=== PATIENT | male | born 1970 | race Caucasian/White ===

== ENCOUNTER 2017-02-08 10:44 | Emergency (ER) | payer BC ==
[2017-02-08 10:52] VITALS: BP 120/61
[2017-02-08 11:26] LABS: Hematocrit 38 % (42-52); Hemoglobin 12.7 g/dl (14.0-18.0); Mean Corpuscular HGB Conc 33 g/dl (31-36); Mean Corpuscular Hemoglobin 30 pg (27-31); Mean Corpuscular Volume 91 fL (80-94); Mean Platelet Volume 8 um3 (7.4-10.4); Red Blood Count 4.21 10^6/ul (4.0-5.4); Red Cell Distribution Width 13 % (10.5-15); White Blood Count 6.7 10^3/ul (3.5-10.8)
[2017-02-08 11:42] LABS: ALT 15 U/L (7-52); AST 17 U/L (13-39); Albumin 4.1 g/dL (3.2-5.2); Alkaline Phosphatase 42 U/L (34-104); Anion Gap 8 mmol/L (2-11); BUN/Creatinine Ratio 15.3 (8-20); Blood Urea Nitrogen 13 mg/dL (6-24); CO2 Carbon Dioxide 25 mmol/L (22-32); Calcium 8.7 mg/dL (8.6-10.3); Chloride 105 mmol/L (101-111); EGFR African American 124.3 (>60); EGFR Non-African American 96.6 (>60); Globulin 2.4 g/dL (2-4); Glucose 93 mg/dL (70-100); Potassium 3.7 mmol/L (3.5-5.0); Sodium 138 mmol/L (133-145); Total Protein 6.5 g/dL (6.4-8.9)
[2017-02-08 12:37] LABS: Benzodiazepine Urine Screen None Detected (None Detect)
[2017-02-08 12:38] LABS: Urine Bilirubin Negative (Negative); Urine Glucose Negative (Negative); Urine Nitrite Negative (Negative)
[2017-02-08 12:55] LABS: Acetaminophen < 15 mcg/mL; Alcohol 33 mg/dL (<10); Salicylate < 2.50 mg/dL (<30)
[2017-02-08 13:04] LABS: TSH (Thyroid Stimulating Horm) 1.69 mcIU/mL (0.34-5.60)
--- NOTE | 2017-02-10 15:52 | ED ---
Leti Schmitz Auryana, scribed for Eric Morrissey MD on 02/08/17 at 1234 . Psychiatric Complaint - HPI Summary HPI Summary: 46 y/o male brought to ED by police c/o anxiety. Patient's symptoms have been aggravated by recent distress due to events with his ex-. Patient was intoxicated last night and sent messages to his - his then called the police, who escorted the patient to the ED by the police. Patient meets with a therapist regularly. PMHx- separation anxiety and depression - patient watched his father commit suicide when the patient was 7/8 years old. - History Of Current Complaint Chief Complaint: EDMentalHealth Time Seen by Provider: 02/08/17 10:58 Accompanied By: police Hx Obtained From: Patient Onset/Duration: Gradual Onset, Still Present, Worse Since - Last night, drank gin. Timing: Constant Severity Initially: Moderate Severity Currently: Moderate Character: Depressed, Anxious Aggravating Factor(s): Recent Stress Related History: Positive For: Prior Psychiatric Issues - PMHx Anxiety and Depression Has Suicidal: Reports: Thoughts - patient states that he learned to "compartmentalize suicidal thoughts" Recent Stressor(s): see HPI Ingestion History: Type/Name Of Drug - alcohol - Risk Factor(s) Completed Suicide Risk Factors: Male, White [place], PMH/Surg Hx/FS Hx/Imm Hx Endocrine/Hematology History: Reports: Hx Thyroid Disease - Hypothyroidism Infectious Disease History: No Infectious Disease History: Denies: Traveled Outside the [place] in Last 30 Days - Family History Known Family History: Positive: Other - ALCOHOL ABUSE- no FHx depression or anxiety. Negative: Hypertension - Social History Occupation: Employed Full-time Lives: Alone Alcohol Use: Occasionally Alcohol Amount: 02/07/17 drank gin Hx Substance Use: Yes Substance Use Type: Reports: Marijuana Substance Use Comment - Amount & Last Used: occasional Hx Tobacco Use: Yes Smoking Status (MU): Light Every Day Tobacco Smoker Review of Systems Constitutional: Negative Negative: Fever Eyes: Negative ENT: Negative Cardiovascular: Negative Respiratory: Negative Gastrointestinal: Negative Genitourinary: Negative Musculoskeletal: Negative Skin: Negative Neurological: Negative Positive: Anxious - Separation anxiety All Other Systems Reviewed And Are Negative: Yes Physical Exam - Summary Physical Exam Summary: VITAL SIGNS: Reviewed. GENERAL: Patient is a well-developed and nourished male who is lying comfortable in the stretcher. Patient is not in any acute respiratory distress. HEAD AND FACE: No signs of trauma. No ecchymosis, hematomas or skull depressions. No sinus tenderness. EYES: PERRLA, EOMI x 2, No injected conjunctiva, no nystagmus. EARS: Hearing grossly intact. Ear canals and tympanic membranes are within normal limits. MOUTH: Oropharynx within normal limits. NECK: Supple, trachea is midline, no adenopathy, no JVD, no carotid bruit, no c- spine tenderness, neck with full ROM. CHEST: Symmetric, no tenderness at palpation LUNGS: Clear to auscultation bilaterally. No wheezing or crackles. CVS: Regular rate and rhythm, S1 and S2 present, no murmurs or gallops appreciated. ABDOMEN: Soft, non-tender. No signs of distention. No rebound no guarding, and no masses palpated. Bowel sounds are normal. EXTREMITIES: FROM in all major joints, no edema, no cyanosis or clubbing. NEURO: Alert and oriented x 3. No acute neurological deficits. Speech is normal and follows commands. SKIN: Dry and warm. PSYCH: Depressed, quiet, and denies any suicidal thoughts or plan. No homicidal thoughts or plan. No signs of psychosis or pressure speech. No tangential speech. Triage Information Reviewed: Yes Vital Signs On Initial Exam: Initial Vitals Temp Pulse Resp BP Pulse Ox 99.2 F 78 20 120/61 100 02/08/17 10:46 02/08/17 10:46 02/08/17 10:46 02/08/17 10:46 02/08/17 10:46 Vital Signs Reviewed: Yes - Jignesh Coma Scale Coma Scale Total: 15 Diagnostics - Vital Signs Vital Signs Temp Pulse Resp BP Pulse Ox 02/08/17 10:51 98.8 F 78 20 120/61 100 02/08/17 10:46 99.2 F 78 20 120/61 100 - Laboratory Lab Results: Lab Results 02/08/17 Range/Units 11:15 WBC 6.7 (3.5-10.8) 10^3/ul RBC 4.21 (4.0-5.4) 10^6/ul Hgb 12.7 L (14.0-18.0) g/dl Hct 38 L (42-52) % MCV 91 (80-94) fL MCH 30 (27-31) pg MCHC 33 (31-36) g/dl RDW 13 (10.5-15) % Plt Count 246 (150-450) 10^3/ul MPV 8 (7.4-10.4) um3 Neut % (Auto) 69.1 (38-83) % Lymph % (Auto) 19.6 L (25-47) % Bryan % (Auto) 7.7 (1-9) % Eos % (Auto) 2.4 (0-6) % Baso % (Auto) 1.2 (0-2) % Absolute Neuts (auto) 4.6 (1.5-7.7) 10^3/ul Absolute Lymphs (auto) 1.3 (1.0-4.8) 10^3/ul Absolute Monos (auto) 0.5 (0-0.8) 10^3/ul Absolute Eos (auto) 0.2 (0-0.6) 10^3/ul Absolute Basos (auto) 0.1 (0-0.2) 10^3/ul Absolute Nucleated RBC 0 10^3/ul Nucleated RBC % 0 Result Diagrams: 02/08/17 11:15 02/08/17 11:15 Lab Statement: Any lab studies that have been ordered have been reviewed, and results considered in the medical decision making process. Course/Dx - Course Assessment/Plan: 46 y/o male brought to ED by police c/o anxiety. Patient's symptoms have been aggravated by recent distress due to events with his ex- . Patient was intoxicated last night and sent messages to his - his then called the police, who escorted the patient to the ED by the police. PMHx- separation anxiety and depression - patient watched his father commit suicide when the patient was 7/8 years old. Patient meets with a therapist regularly. Test results are WNL with slight pneumonia, UA (-) UTI, urine toxicology is positive for cannabinoids, serum alcohol 33. Patient was medically cleared at 12:00. At this point the patient was awaiting a mental health evaluation. Dr. Fields of psychiatry cleared the patient, and requested patient discharge with outpatient follow up. Patient is hemodynamically stable and A&Ox3. - Differential Dx/Clinical Impression Differential Diagnosis/HQI/PQRI: Positive: Anxiety, Depression, Suicidal Ideation Provider Diagnosis: Depression, Alcohol abuse Discharge - Discharge Plan Condition: Stable Disposition: HOME Patient Education Materials: Abuse of Alcohol (ED), Depression (ED) Referrals: Prashanth Jane MD [Primary Care Provider] - The documentation as recorded by the Leti fernandez Auryana accurately reflects the service I personally performed and the decisions made by me, Eric Morrissey MD.
== END 2017-02-08 14:22 | disposition home or self-care (01) ==
LOC: ED 10:44
DX: F93.0 Separation anxiety disorder of childhood (principal); F10.129 Alcohol abuse with intoxication, unspecified; F32.9 Major depressive disorder, single episode, unspecified; F17.210 Nicotine dependence, cigarettes, uncomplicated
CPT/HCPCS: 36415; 80053; 80307; 80320; 80329; 81003; 84443; 85025; 99283; G0480

== ENCOUNTER 2018-08-08 11:54 | Emergency (ER) | payer BC, OTHER ==
--- NOTE | 2018-08-08 12:36 | ED ---
Neurological HPI - HPI Summary HPI Summary: This patient is a 48 year old M presenting to [facility] accompanied by a woman with a chief complaint of acute MOTA episode leading to further symptoms on . The patient rates the pain 1/10 in severity currently. Patient reports blurry vision, confusion and anxiety. Patient denies nausea, vomiting, fever, CP, or SOB. Pt states that three days ago something behind his right eye popped and he had an instant MOTA, rated 9/10 at the time. Currently the headache is almost gone. Pt mentions that he recently recovered from viral bronchitis. Pt is currently going through a divorce and is very stressed. Pt reports that he has been taking ibuprofen for the pain but did not take any today. PMHX hypothyroidism. SHX tobacco use, 1/3 pack a day, and EtOH use, few glasses of wine a day. No past major surgeries. Past use of marijuana, quit a few weeks ago. FHX stroke. No FHx brain aneurism. NKDA. NIH: 0 - History of Current Complaint Chief Complaint: EDNeurologicalDeficit Stated Complaint: FELT POP BEHIND RIGHT EYE/HEADACHE/CONFUSION/ Time Seen by Provider: 08/08/18 12:10 Hx Obtained From: Patient Onset/Duration: Sudden Onset, Started days ago - 3 Timing: Sudden Onset Onset Severity: Worst Headache Ever Current Severity: Mild - 1/10 Headache Location: Frontal Pain Intensity: 1 Pain Scale Used: 0-10 Numeric Associated Signs and Symptoms: Positive: Headache, Confusion, Neck Pain/ Stiffness, Recent Illness - viral bronchitis, Anxiety - Allergy/Home Medications Allergies/Adverse Reactions: Allergies Allergy/AdvReac Type Severity Reaction Status Date / Time No Known Allergies Allergy Verified 08/08/18 12:01 PMH/Surg Hx/FS Hx/Imm Hx Endocrine/Hematology History: Reports: Hx Thyroid Disease - Hypothyroidism History: Denies: Hx Dialysis Psychiatric History: Denies: Hx Eating Disorder, Hx of Violent Episodes Against Others - Immunization History Immunizations Up to Date: Yes Infectious Disease History: No Infectious Disease History: Denies: Traveled Outside the [place] in Last 30 Days - Family History Known Family History: Positive: Other - ALCOHOL ABUSE- no FHx depression or anxiety. Negative: Hypertension - Social History Occupation: Employed Full-time Alcohol Use: Occasionally Alcohol Amount: 02/07/17 drank gin Hx Substance Use: Yes Substance Use Type: Reports: Marijuana Substance Use Comment - Amount & Last Used: quit recently Hx Tobacco Use: Yes Smoking Status (MU): Light Every Day Tobacco Smoker Review of Systems Negative: Fever Positive: Blurred Vision Negative: Chest Pain Negative: Shortness Of Breath Negative: Vomiting, Nausea Positive: Other - neck pain Positive: Headache Positive: Anxious All Other Systems Reviewed And Are Negative: Yes Physical Exam - Summary Physical Exam Summary: GENERAL: Patient is a well-developed and nourished male who is lying comfortable in the stretcher. Patient is not in any acute respiratory distress. HEAD AND FACE: Normocephalic EYES: PERRLA, EOMI x 2. EARS: Hearing grossly intact. MOUTH: Oropharynx within normal limits. NECK: Supple, trachea is midline, no adenopathy, no JVD, no carotid bruit. CHEST: Symmetric, no tenderness at palpation LUNGS: Clear to auscultation bilaterally. No wheezing or crackles. CVS: Regular rate and rhythm, S1 and S2 present, no murmurs or gallops appreciated. ABDOMEN: Soft, non-tender. Bowel sounds are normal. No abdominal abnormal pulsations. EXTREMITIES: Full ROM in all major joints, no edema, no cyanosis or clubbing. NEURO: Alert and oriented x 3. No acute neurological deficits. Speech is normal and follows commands. Neuro exam extended: Cranial nerves II-XII grossly intact, no dysmetria finger to nose, nml heel to butler SKIN: Dry and warm NIH: 0 Triage Information Reviewed: Yes Vital Signs On Initial Exam: Initial Vitals Temp Pulse Resp BP Pulse Ox 98 F 81 16 124/74 97 08/08/18 11:56 08/08/18 11:56 08/08/18 11:56 08/08/18 11:56 08/08/18 11:56 Vital Signs Reviewed: Yes Diagnostics - Vital Signs Vital Signs Temp Pulse Resp BP Pulse Ox 08/08/18 11:56 98 F 81 16 124/74 97 - Laboratory Result Diagrams: 08/08/18 13:08 08/08/18 13:08 Lab Statement: Any lab studies that have been ordered have been reviewed, and results considered in the medical decision making process. - CT Head CTA CT Interpretation Completed By: Radiologist Summary of CT Findings: No evidence for intracranial hemorrhage. Negative exam. Negative CT angiogram of the carotid and vertebral arteries. Negative CT angiogram of head. No large vessel stenosis or occlusion evident. No intracranial aneurysm detected. ED physician has reviewed this report - EKG 12:41 Cardiac Rate: NL - 63 bpm EKG Rhythm: Sinus Rhythm Summary of EKG Findings: normal axis NIH Scale - NIH Scale Level of Consciousness: Alert/Keenly Responsive Ask Patient the Month and His/Her Age: Both Correct Ask Pt to Open/Close Eyes and Pulp Mixer/Release Non-Paretic Hand: Both Correctly Best Gaze (Only Horizontal Eye Movement): Normal Visual Field Testing: No Visual Loss Facial Paresis-Pt to Smile & Close Eyes or Grimace Symmetry: Normal/Symmetrical Motor Function - Right Arm: No Drift-Holds 10 Seconds Motor Function - Left Arm: No Drift-Holds 10 Seconds Motor Function - Right Leg: No Drift-Holds 10 Seconds Motor Function - Left Leg: No Drift-Holds 10 Seconds Limb Ataxia-Must be out of Proportion to Weakness Present: Absent Sensory (Use Pinprick to Test Arms/Legs/Trunk/Face): Normal Best Language (Describe Picture, Name Items): No Aphasia Dysarthria (Read Several Words): Normal Extinction and Inattention: No Abnormality Total Score: 0 Re-Evaluation - Re-Evaluation First Eval Re-Evaluation Time: 15:12 Change: Improved Comment: The patient's pain is completely gone Course/Dx - Course Course Of Treatment: This patient is a 48 year old M presenting to [facility] accompanied by a woman with a chief complaint of acute MOTA episode leading to further symptoms three days ago. The patient rates the pain 1/10 in severity. Patient reports blurry vision, confusion and anxiety. Patient denies nausea, vomiting, fever, CP, or SOB. Symptoms are much improved since 3 days ago. An EKG reveals NSR 63 bpm, normal axis. Head CTA reveals, No evidence for intracranial hemorrhage. Negative exam. Negative CT angiogram of the carotid and vertebral arteries. Negative CT angiogram of head. No large vessel stenosis or occlusion evident. No intracranial aneurysm detected. ED physician has reviewed this radiology report. Test results with no significant abnormalities. In the ED course the patient was given IV fluids. Patient will be discharged with follow up from Dr. Ramos. The patient is agreeable with this plan. Strict return precautions given - Differential Dx Differential Diagnoses Neuro: Positive: Headache - Diagnoses Provider Diagnoses: Headache Discharge - Sign-Out/Discharge Documenting (check all that apply): Patient Departure - discharge - Discharge Plan Condition: Stable Disposition: HOME Patient Education Materials: Acute Headache (ED) Referrals: Yan Ramos MD [Medical Doctor] - 2 Days Additional Instructions: Follow up with Dr. Ramos in 1-3 days. RETURN TO THE EMERGENCY DEPARTMENT FOR CHANGING OR WORSENING SYMPTOMS. - Billing Disposition and Condition Condition: STABLE Disposition: Home - Attestation Statements Document Initiated by Scribe: Yes Documenting Scribe: Adam Myers Provider For Whom Bruna is Documenting (Include Credential): Jose Armando Dao MD Scribe Attestation: Adam Schmitz, scribed for Jose Armando Dao MD on 08/08/18 at 1733. Scribe Documentation Reviewed: Yes Provider Attestation: The documentation as recorded by the Adam fernandez accurately reflects the service I personally performed and the decisions made by Jose Armando deleon MD Status of Scribe Document: Viewed
[2018-08-08] MEDS ORDERED: NS 0.9% 1000 ML* 1,000 ML IV ONE (12:37)
[2018-08-08 13:16] LABS: ABS Basophils 0 10^3/ul (0-0.2); ABS Eosinophils 0.1 10^3/ul (0-0.6); ABS Monocytes 0.3 10^3/ul (0-0.8); ABS Neutrophils 1.9 10^3/ul (1.5-7.7); ABS Nucleated RBC 0 10^3/ul; Eosinophil % 1.9 %; Hematocrit 37 % (42-52); Hemoglobin 12.5 g/dl (14.0-18.0); Lymphocyte % 30.5 %; Mean Corpuscular HGB Conc 34 g/dl (31-36); Mean Corpuscular Hemoglobin 31 pg (27-31); Mean Corpuscular Volume 91 fL (80-94); Mean Platelet Volume 7.5 fL (7.4-10.4); Nucleated Red Blood Cells % 0; Platelet Count 262 10^3/ul (150-450); Red Blood Count 4.11 10^6/ul (4.00-5.40); Red Cell Distribution Width 13 % (10.5-15); White Blood Count 3.4 10^3/ul (3.5-10.8)
[2018-08-08 13:31] LABS: INR 0.91 (0.77-1.02)
[2018-08-08 13:48] LABS: EGFR Non-African American 97.1 (>60)
[2018-08-08] MEDS ORDERED: Iohexol 350* (CONTRAST) 500 ML MDV IV ONE (14:03)
[2018-08-08 15:39] VITALS: BP 107/64
== END 2018-08-08 15:38 | disposition home or self-care (01) ==
LOC: ED 11:54
DX: R51 Headache (principal); E03.9 Hypothyroidism, unspecified; Z72.0 Tobacco use
CPT/HCPCS: 36415; 70496; 70498; 80053; 84484; 85025; 85610; 85730; 86141; 93005; 96361; 96374; 99282; Q9967

== ENCOUNTER 2019-06-25 11:03 | Emergency (ER) | payer BC ==
[2019-06-25 11:19] VITALS: BP 101/44
--- NOTE | 2019-06-25 11:23 | UC ---
Throat Pain/Nasal Merlin HPI - HPI Summary HPI Summary: Patient is a 48-year-old male presenting with sore throat times one day. States he is concern for strep throat. Notes fever this morning for which he took 30 Advil. Notes difficulty swallowing due to throat pain. Denies nasal congestion and ear pain. Denies cough. Denies shortness of breath and wheezing. Denies nausea, vomiting, diarrhea. States he had strep a couple years ago and this feels the same. - History of Current Complaint Chief Complaint: UCGeneralIllness Stated Complaint: SORE THROAT Hx Obtained From: Patient Onset/Duration: Sudden Onset Severity: Mild Pain Intensity: 2 Pain Scale Used: 0-10 Numeric - Allergies/Home Medications Allergies/Adverse Reactions: Allergies Allergy/AdvReac Type Severity Reaction Status Date / Time No Known Allergies Allergy Verified 06/25/19 11:11 Home Medications: Home Medications Ibuprofen TAB* [Advil TAB*] 3 tab PO ONCE 06/25/19 [History Confirmed 06/25/19] Levothyroxine TAB* [Synthroid TAB*] 125 mcg PO DAILY 06/25/19 [History Confirmed 06/25/19] PMH/Surg Hx/FS Hx/Imm Hx - Surgical History Surgical History: Yes Surgery Procedure, Year, and Place: R knee - DRAIN THE BURSA SAC. PREV EYE SURG - REMOVAL OF METAL FOREIGN BODIES - Family History Known Family History: Positive: Other - ALCOHOL ABUSE- no FHx depression or anxiety. Negative: Hypertension - Social History Alcohol Use: Occasionally Alcohol Amount: 02/07/17 drank gin Substance Use Type: Marijuana Substance Use Comment - Amount & Last Used: occasionally Smoking Status (MU): Light Every Day Tobacco Smoker Amount Used/How Often: 1/2 ppd Review of Systems All Other Systems Reviewed And Are Negative: Yes Constitutional: Positive: Fever. Negative: Chills, Fatigue ENT: Positive: Sore Throat. Negative: Ear Ache, Nasal Discharge, Sinus Congestion, Sinus Pain/Tenderness Respiratory: Positive: Negative. Negative: Shortness Of Breath, Cough Cardiovascular: Positive: Negative Gastrointestinal: Positive: Negative. Negative: Vomiting, Nausea Musculoskeletal: Positive: Negative Neurological: Positive: Negative. Negative: Headache Physical Exam Triage Information Reviewed: Yes Appearance: Well-Appearing, No Pain Distress, Well-Nourished Vital Signs: Initial Vital Signs Temp 97.6 F 06/25/19 11:12 Pulse 55 06/25/19 11:12 Resp 16 06/25/19 11:12 BP 101/44 06/25/19 11:12 Pulse Ox 100 06/25/19 11:12 Lab Results 06/25/19 Range/Units 11:24 Group A Strep Rapid Positive A (Negative) Eyes: Positive: Conjunctiva Clear ENT: Positive: Hearing grossly normal, Pharyngeal erythema, TMs normal, Tonsillar swelling, Tonsillar exudate, Uvula midline. Negative: Nasal congestion, Nasal drainage, TM bulging, TM dull, TM red, Trismus, Muffled voice , Hoarse voice, Sinus tenderness Neck exam: Normal Neck: Positive: Supple, Nontender, No Lymphadenopathy Respiratory Exam: Normal Respiratory: Positive: Lungs clear, Normal breath sounds, No respiratory distress. Negative: Crackles, Rhonchi, Stridor, Wheezing Cardiovascular Exam: Normal Cardiovascular: Positive: RRR Neurological: Positive: Alert Psychological: Positive: Age Appropriate Behavior Throat Pain/Nasal Course/Dx - Course Course Of Treatment: Patient has a positive for strep throat and is being treated with amoxicillin. Instructed to continue symptomatic treatment as well. Instructed to follow up with PCP if symptoms persist. Patient voiced understanding and agreed with the treatment plan. - Differential Dx/Diagnosis Provider Diagnosis: Strep pharyngitis Discharge ED - Sign-Out/Discharge Documenting (check all that apply): Patient Departure All imaging exams completed and their final reports reviewed: No Studies - Discharge Plan Condition: Stable Disposition: HOME Prescriptions: Amoxicillin PO (*) [Amoxicillin 500 MG CAP*] 500 mg PO BID #20 cap Patient Education Materials: Strep Throat (ED) Referrals: Prashanth Jane MD [Primary Care Provider] - If Needed Additional Instructions: As discussed, you tested postitive for strep throat today. Take amoxicillin as prescribed for treatment of strep throat. You may take ibuprofen and/or tylenol as directed for fever and pain relief. You may use over the counter throat sprays or lozenges for symptomatic relief. Get plenty of rest and fluids. Follow up with your primary care physician if symptoms worsen or do not resolve in 10 days. - Billing Disposition and Condition Condition: STABLE Disposition: Home - Attestation Statements Provider Attestation: I was available for consult. This patient was seen by the [facility]. The patient was not presented to, seen by, or examined by me. -Gerhard
== END 2019-06-25 11:48 | disposition home or self-care (01) ==
LOC: UCEAST 11:03
DX: J02.0 Streptococcal pharyngitis (principal); F17.210 Nicotine dependence, cigarettes, uncomplicated
CPT/HCPCS: 87651; 99212; G0463